=== PATIENT | female | born 1945 | race Caucasian/White ===

== ENCOUNTER 2018-01-17 12:53 | Emergency (ER) | payer OTHER ==
[~2018-01-17] VITALS: Ht 149.9 cm; Wt 96.2 kg
[2018-01-17 13:02] VITALS: BP 130/58
[2018-01-17] MEDS ORDERED: NACL 0.9% 500 ML IV ONE (13:17)
[2018-01-17] MEDS ORDERED: KETOROLAC 30 MG/ML VIAL IVP ONE (13:20)
--- NOTE | 2018-01-17 13:22 | NUR ---
PT TAKEN TO BED 4 VIA MOTORIZED WHEELCHAIR
--- NOTE | 2018-01-17 13:30 | NUR ---
PATIENT PRESENTS TO ED WITH PT BIB SON FOR C/O LEFT FLANK PAIN 8/10 FOR 2 WEEKS. DENIES N/V/D OR DIZZINESS. PAIN SOMETIMES ASSOCIATED WITH SOB. HX: ASTHMA, DM, ARTHRITIS, HTN, OSTEOARTHRITIS; SKIN IS PINK/WARM/DRY; AAOX4 WITH EVEN AND STEADY GAIT; LUNGS CLEAR BL; HR EVEN AND REGULAR; PT DENIES ANY FEVER, CP, SOB, OR COUGH AT THIS TIME; PATIENT STATES PAIN OF 8/10 AT THIS TIME; VSS; PATIENT POSITIONED FOR COMFORT; HOB ELEVATED; BEDRAILS UP X2; BED DOWN. ER MD MADE AWARE OF PT STATUS.
--- NOTE | 2018-01-17 13:50 | NUR ---
PT TAKEN OFF THE UNIT VIA GURNEY BY MALE IMPERSONATOR CARLOS
[2018-01-17 15:18] VITALS: BP 130/58
--- NOTE | 2018-01-17 15:19 | NUR ---
Patient discharged with v/s stable. Written and verbal after care instructions given and explained. Patient alert, oriented and verbalized understanding of instructions. Ambulatory with to car. All questions addressed prior to discharge. ID band removed. Patient advised to follow up with PMD. Rx of MOTRIN, TRAMADOL given. Patient educated on indication of medication including possible reaction and side effects. Opportunity to ask questions provided and answered.
--- NOTE | 2018-01-17 15:55 | NUR ---
IV DC'D SITE CLEAR NO BLEEDING.
== END 2018-01-17 15:19 | disposition home or self-care (01) ==
LOC: MED 12:53
DX: M54.9 Dorsalgia, unspecified (principal); R03.0 Elevated blood-pressure reading, without diagnosis of hypertension; Z91.013 Allergy to seafood
CPT/HCPCS: 74176; 81002; 81025; 96374; 99284; J1885; J7030

== ENCOUNTER 2018-01-23 12:04 | Emergency (ER) | payer OTHER ==
[~2018-01-23] VITALS: Ht 142.2 cm; Wt 99.8 kg
[2018-01-23 12:24] VITALS: BP 131/86
--- NOTE | 2018-01-23 12:30 | NUR ---
PATIENT AMBULATED WITH ASSISTANCE TO BED 6.
--- NOTE | 2018-01-23 12:35 | NUR ---
PATIENT PRESENTS TO ED WITH COMPLAINTS OF DIZZINESS AND POSSIBLE VERTIGO. PATIENT STATES SHE ATTEMPTED TO GET UP THIS MORNING FROM SLEEPING AND WAS VERY DIZZY AND NAUSEATED. SKIN IS PINK/WARM/DRY; AAOX4 WITH EVEN AND STEADY GAIT; LUNGS CLEAR BL; HR EVEN AND REGULAR; PT DENIES ANY FEVER, CP, SOB, OR COUGH AT THIS TIME; PATIENT STATES PAIN OF 0/10 AT THIS TIME; VSS; PATIENT POSITIONED FOR COMFORT; HOB ELEVATED; BEDRAILS UP X1; BED DOWN. ER MD MADE AWARE OF PT STATUS.
[2018-01-23] MEDS ORDERED: MECLIZINE 25 MG TAB PO ONE (13:20)
--- NOTE | 2018-01-23 13:50 | NUR ---
PATIENT TAKEN TO CT VIA GURNEY AT THIS TIME.
--- NOTE | 2018-01-23 13:58 | NUR ---
PATIENT BACK FROM CT
--- NOTE | 2018-01-23 14:30 | NUR ---
Patient appears to be resting comfortably in bed. Vital Signs within normal limits. Respirations even and unlabored.
[2018-01-23 14:50] VITALS: BP 126/81
== END 2018-01-23 14:50 | disposition home or self-care (01) ==
LOC: MED 12:04
DX: R42 Dizziness and giddiness (principal); R11.0 Nausea; R51 Headache; J45.909 Unspecified asthma, uncomplicated; E11.9 Type 2 diabetes mellitus without complications; I10 Essential (primary) hypertension; Z91.013 Allergy to seafood
CPT/HCPCS: 70450; 99284; J8597

== ENCOUNTER 2018-04-26 03:12 | Emergency (ER) | payer OTHER ==
[~2018-04-26] VITALS: Ht 132.1 cm; Wt 93.4 kg
--- NOTE | 2018-04-26 03:20 | NUR ---
PT AMBULATED W/ ASSIST BY SON TO ER BED 5
[2018-04-26 03:27] VITALS: BP 146/76
--- NOTE | 2018-04-26 03:43 | NUR ---
72/F BIB FAMILY, C/O 8/10 CONSTANT JOINT PAIN, MOSTLY ON HANDS, X4 DAYS. PT REPORTS TAKING TYLENOL WITH CODEINE WITH LITTLE RELIEF. PT REPORTS BEING UNABLE TO SLEEP DUE TO PAIN. AOX4, AMBULATORY, RR EVEN AND UNLABORED. ER MD AT BEDSIDE TO EVALUTE PT HX ASTHMA, DM, HTN, OSTEOPOROSIS, ARTHRITIS.
[2018-04-26] MEDS ORDERED: MORPHINE SULFATE 2 MG/ML SYR IM ONE (04:00)
[2018-04-26 04:11] VITALS: BP 142/85
--- NOTE | 2018-04-26 04:12 | NUR ---
Patient discharged with v/s stable. Written and verbal after care instructions given and explained. Patient alert, oriented and verbalized understanding of instructions. Ambulatory with steady gait. All questions addressed prior to discharge. ID band removed. Patient advised to follow up with PMD. Rx of CELEBREX given. Patient educated on indication of medication including possible reaction and side effects. Opportunity to ask questions provided and answered.
== END 2018-04-26 04:11 | disposition home or self-care (01) ==
LOC: MED 03:12
DX: M19.032 Primary osteoarthritis, left wrist (principal); M19.031 Primary osteoarthritis, right wrist; J45.909 Unspecified asthma, uncomplicated; E11.9 Type 2 diabetes mellitus without complications; I10 Essential (primary) hypertension; M81.0 Age-related osteoporosis without current pathological fracture; Z91.013 Allergy to seafood
CPT/HCPCS: 96372; 99283; J2270

== ENCOUNTER 2018-06-17 17:20 | Emergency (ER) | payer OTHER ==
[~2018-06-17] VITALS: Ht 157.5 cm; Wt 93.4 kg
[2018-06-17 17:40] VITALS: BP 143/77
[2018-06-17] MEDS ORDERED: HYDROcodone/APAP 5/325 MG 1 TAB TAB PO ONE (17:55)
[2018-06-17] MEDS ORDERED: BACITRACIN OINT 500 UNITS/GM PKT TP ONE (20:13)
[2018-06-17 20:20] VITALS: BP 140/78
== END 2018-06-17 20:20 | disposition home or self-care (01) ==
LOC: MED 17:20
DX: S80.11XA Contusion of right lower leg, initial encounter (principal); J45.909 Unspecified asthma, uncomplicated; E11.9 Type 2 diabetes mellitus without complications; Z91.013 Allergy to seafood; W20.8XXA Other cause of strike by thrown, projected or falling object, initial encounter; Y93.89 Activity, other specified; Y92.89 Other specified places as the place of occurrence of the external cause; Y99.8 Other external cause status
CPT/HCPCS: 73590; 73610; 81002; 90471; 90715; 99283; Q0092

== ENCOUNTER 2018-07-30 11:55 | Emergency (ER) | payer OTHER, MEDICAID ==
[~2018-07-30] VITALS: Ht 157.5 cm; Wt 99.8 kg
--- NOTE | 2018-07-30 12:05 | NUR ---
PT AMBULATED TO ER BED 10
[2018-07-30 12:20] VITALS: BP 120/66
--- NOTE | 2018-07-30 13:03 | NUR ---
BIB SON WITH C/O PRODUCTIVE COUGH AND SORE THROAT, HEAD ACHE, CHEST PAIN WHEN COUGHING X 1 WK AND CHRONIC LT ANKLE SWELLING/PAIN; DENIES INJURY. PT HAS AUDIBLE HOARSE VOICE. SOME WHEEZING NOTED ON AUSCULTATION OF LUNGS, UPPER LOBES. VSS; PATIENT POSITIONED FOR COMFORT; HOB ELEVATED; BEDRAILS UP X2; BED DOWN. ER MD MADE AWARE OF PT STATUS.
[2018-07-30 14:28] VITALS: BP 120/66
--- NOTE | 2018-07-30 14:28 | NUR ---
Patient discharged with v/s stable. Written and verbal after care instructions given and explained. Patient alert, oriented and verbalized understanding of instructions. Ambulatory with steady gait. All questions addressed prior to discharge. ID band removed. Patient advised to follow up with PMD. Rx of norco and teshoracio cota, and guaiatussin given. Patient educated on indication of medication including possible reaction and side effects. Opportunity to ask questions provided and answered.
== END 2018-07-30 14:28 | disposition home or self-care (01) ==
LOC: MED 11:55
DX: B34.9 Viral infection, unspecified (principal); J45.909 Unspecified asthma, uncomplicated; E11.9 Type 2 diabetes mellitus without complications; I10 Essential (primary) hypertension; M81.0 Age-related osteoporosis without current pathological fracture; Z91.013 Allergy to seafood; Z98.890 Other specified postprocedural states
CPT/HCPCS: 71045; 99283; Q0092

== ENCOUNTER 2018-08-15 21:03 | Inpatient (IN) | payer OTHER, MEDICAID ==
[~2018-08-15] VITALS: Ht 162.6 cm; Wt 99.8 kg
[2018-08-15] MEDS: NACL 0.9% 1,000 ML IV SCH (00:40)
[2018-08-15] MEDS ORDERED: ALBUTEROL SULFATE/IPRATROPIU 3 ML SOL IH ONE ×2 (21:30→21:50)
[2018-08-15] MEDS ORDERED: methylPREDNISolone SS 125 MG in WATER STERILE 2 ML IV ONE (21:30)
[2018-08-15] MEDS ORDERED: HYDR-5122 PO (23:24)
[2018-08-15] MEDS ORDERED: INSU100S45 SUBQ (23:24)
[2018-08-15] MEDS ORDERED: ALBU1SPR IH (23:24)
[2018-08-15] MEDS ORDERED: LEVEMIR SUBQ (23:24)
[2018-08-15] MEDS ORDERED: ALBU0.0912 IH (23:24)
[2018-08-15] MEDS ORDERED: ZOLPIDEM 5 MG TAB PO PRN (23:25)
[2018-08-15] MEDS ORDERED: ACETAMINOPHEN 325 MG TAB PO PRN (23:25)
[2018-08-15] MEDS ORDERED: LORazepam 2 MG/ML VIAL IM/IVP PRN (23:25)
[2018-08-15] MEDS ORDERED: ONDANSETRON 4 MG/2 ML VIAL IM/IVP PRN (23:25)
[2018-08-15] MEDS ORDERED: MORPHINE SULFATE 4 MG/ML SYR IVP PRN (23:25)
[2018-08-15] MEDS ORDERED: DOCUSATE SODIUM 100 MG GELCAP PO PRN (23:25)
[2018-08-15 23:52] LABS: BASOPHILS % (AUTO) 0.3 % (0.0-2.0); EOSINOPHILS % (AUTO) 0.5 % (0.0-4.0); HEMATOCRIT 41.6 % (36-48); HEMOGLOBIN 13.9 g/dL (12.0-16.0); LYMPHOCYTES # (AUTO) 1.3 K/uL (2.5-16.5); LYMPHOCYTES % (AUTO) 15.4 % (20.5-51.1); MEAN CORPUSCULAR HEMOGLOBIN 34 pg (27-31); MEAN CORPUSCULAR HGB CONC 33 g/dL (33-37); MEAN CORPUSCULAR VOLUME 101.2 fL (80-94); MONOCYTES # (AUTO) 0.3 K/uL (0.8-1.0); MONOCYTES % (AUTO) 3.2 % (1.7-9.3); NEUTROPHILS # (AUTO) 6.7 K/uL (1.8-7.7); NEUTROPHILS % (AUTO) 80.6 % (42.2-75.2); PLATELET COUNT (AUTO) 240 K/uL (140-450); RED BLOOD CELL COUNT(AUTO) 4.11 MIL/uL (4.20-5.40); RED CELL DISTRIBUTION WIDTH 13.3 % (11.6-13.7); WHITE BLOOD COUNT (AUTO) 8.3 K/uL (4.8-10.8)
[2018-08-16] VITALS: BP 144/66
[2018-08-16] MEDS ORDERED: ALBUTEROL SULFATE/IPRATROPIU 3 ML SOL IH PRN (00:10)
[2018-08-16 00:11] LABS: ALBUMIN 3.5 g/dL (3.4-5.0); ANION GAP 10.3 (8-16); CARBON DIOXIDE 30.4 mmol/L (21-32); CREATININE 0.8 mg/dL (0.6-1.3); POTASSIUM 3.7 mmol/L (3.5-5.1); TOTAL BILIRUBIN 0.2 mg/dL (0.0-1.0)
[2018-08-16 00:15] LABS: CHOL/HDL RATIO 3.2 (1-4.5); FREE T4 (FREE THYROXINE) 1.04 ng/dL (0.76-1.46); MAGNESIUM 1.8 mg/dL (1.8-2.4); PHOSPHORUS 2.6 mg/dL (2.5-4.9); THYROID STIMULATING HORMONE 1.29 uIU/mL (0.34-3.74)
[2018-08-16 00:17] LABS: PROTHROMBIN TIME 9.5 secs (10.8-13.4)
[2018-08-16] MEDS ORDERED: DEXTROSE 50% 50 ML SYR IVP PRN (02:35)
[2018-08-16] MEDS ORDERED: INSULIN LANTUS 100 UNITS/ML 10 ML VIAL SUBQ SCH ×3 (03:15→21:00)
[2018-08-16 04:58] LABS: APPEARANCE,URINE CLEAR (CLEAR); BILIRUBIN,URINE NEGATIVE (NEGATIVE); BLOOD, URINE NEGATIVE (NEGATIVE); COLOR,URINE YELLOW (YELLOW); LEUKOCYTE ESTERASE ,URINE NEGATIVE (NEGATIVE); NITRITE, URINE NEGATIVE (NEGATIVE); PH,URINE 6.5 (5.0-9.0); UGLUCOSE 3+ (NEGATIVE)
[2018-08-16 04:59] LABS: RBC,URINE 0-5 (RARE) /HPF (0-5); WBC,URINE 0-5 (RARE) /HPF (0-5)
[2018-08-16 05:02] LABS: BARBITURATE, URINE NEG. ng/ml (NEG <=200); BENZODIAZEPINE, URINE NEG. ng/mL (NEG <=200); CANNABINOID, URINE NEG. ng/mL (NEG <=50); COCAINE, URINE NEG. ng/mL (NEG <=300); OPIATE, URINE NEG. ng/mL (NEG <=2000); PHENCYCLIDINE SCREEN,URINE NEG. ng/mL (NEG <=25)
[2018-08-16] MEDS: HYDROcodone/APAP 5/325 MG 1 TAB TAB PO PRN ×2 (05:35→22:14)
[2018-08-16] MEDS: INSULIN LISPRO SLIDING SCALE 100 UNITS/ML VIAL SUBQ PRN ×4 (05:36→22:04)
[2018-08-16] MEDS: BLOOD GLUCOSE MONITORING 1 DEV DEV FS SCH ×4 (05:46→21:57)
[2018-08-16] MEDS: ALBUTEROL SULFATE/IPRATROPIU 3 ML SOL IH SCH ×3 (06:45→18:39)
[2018-08-16 06:56] LABS: BASOPHILS % (AUTO) 0.2 % (0.0-2.0); EOSINOPHILS % (AUTO) 0.2 % (0.0-4.0); HEMATOCRIT 42.5 % (36-48); HEMOGLOBIN 14.2 g/dL (12.0-16.0); LYMPHOCYTES # (AUTO) 0.7 K/uL (2.5-16.5); MEAN CORPUSCULAR HEMOGLOBIN 34 pg (27-31); MEAN CORPUSCULAR HGB CONC 33 g/dL (33-37); MEAN CORPUSCULAR VOLUME 101.2 fL (80-94); MONOCYTES # (AUTO) 0.1 K/uL (0.8-1.0); NEUTROPHILS % (AUTO) 86.6 % (42.2-75.2); PLATELET COUNT (AUTO) 245 K/uL (140-450); RED CELL DISTRIBUTION WIDTH 13.2 % (11.6-13.7); WHITE BLOOD COUNT (AUTO) 5.7 K/uL (4.8-10.8)
[2018-08-16] MEDS ORDERED: MORPHINE SULFATE 2 MG/ML SYR IVP PRN (07:10)
[2018-08-16 07:42] LABS: ANION GAP 16.3 (8-16); CARBON DIOXIDE 24.4 mmol/L (21-32); CREATININE 0.6 mg/dL (0.6-1.3); POTASSIUM 3.7 mmol/L (3.5-5.1)
[2018-08-16 07:51] LABS: MAGNESIUM 1.8 mg/dL (1.8-2.4); PHOSPHORUS 2.8 mg/dL (2.5-4.9)
[2018-08-16 08:00] VITALS: BP 119/66
[2018-08-16] MEDS ORDERED: methylPREDNISolone SS 125 MG/2 ML VIAL IVP SCH (09:00)
[2018-08-16] MEDS: NACL 0.9% 1,000 ML IV SCH ×2 (09:21→20:17)
[2018-08-16] MEDS: FLUoxetine 20 MG CAP PO SCH (09:34)
[2018-08-16] MEDS: methylPREDNISolone SS 125 MG/2 ML VIAL IVP SCH ×3 (09:35→17:25)
[2018-08-16] MEDS: LACTOBACILLUS RHAMNOSUS GG 1 EACH CAP PO SCH (09:35)
[2018-08-16] MEDS: metFORMIN 500 MG TAB PO SCH ×2 (09:36→17:25)
[2018-08-16 15:59] VITALS: BP 102/56
[2018-08-16] MEDS ORDERED: INSU100S54 SC (15:59)
[2018-08-16] MEDS ORDERED: METF500T PO (16:00)
[2018-08-16] MEDS ORDERED: LACT10CA PO (16:00)
[2018-08-16] MEDS ORDERED: GLUC-805 FS (16:00)
[2018-08-16] MEDS ORDERED: PRED10TA6 PO (16:00)
[2018-08-16] MEDS ORDERED: FLUT1DSK IH (16:00)
[2018-08-16 20:00] VITALS: BP 105/49
[2018-08-17 04:00] VITALS: BP 112/54
[2018-08-17] MEDS ORDERED: INSULIN LANTUS 100 UNITS/ML 10 ML VIAL SUBQ SCH (06:25)
[2018-08-17] MEDS: BLOOD GLUCOSE MONITORING 1 DEV DEV FS SCH (06:29)
[2018-08-17] MEDS: INSULIN LISPRO SLIDING SCALE 100 UNITS/ML VIAL SUBQ PRN (06:32)
[2018-08-17 06:34] LABS: HEMATOCRIT 39.6 % (36-48); HEMOGLOBIN 13.2 g/dL (12.0-16.0); LYMPHOCYTES # (AUTO) 1.1 K/uL (2.5-16.5); LYMPHOCYTES % (AUTO) 9.6 % (20.5-51.1); MEAN CORPUSCULAR HEMOGLOBIN 34 pg (27-31); MEAN CORPUSCULAR HGB CONC 33 g/dL (33-37); MEAN CORPUSCULAR VOLUME 101.3 fL (80-94); MONOCYTES # (AUTO) 0.3 K/uL (0.8-1.0); MONOCYTES % (AUTO) 3.1 % (1.7-9.3); NEUTROPHILS # (AUTO) 9.8 K/uL (1.8-7.7); NEUTROPHILS % (AUTO) 87.3 % (42.2-75.2); PLATELET COUNT (AUTO) 247 K/uL (140-450); RED BLOOD CELL COUNT(AUTO) 3.91 MIL/uL (4.20-5.40); RED CELL DISTRIBUTION WIDTH 13.5 % (11.6-13.7); WHITE BLOOD COUNT (AUTO) 11.3 K/uL (4.8-10.8)
[2018-08-17 06:55] LABS: CREATININE 0.5 mg/dL (0.6-1.3)
[2018-08-17] MEDS: ALBUTEROL SULFATE/IPRATROPIU 3 ML SOL IH SCH ×2 (07:00→13:00)
[2018-08-17 07:02] LABS: ANION GAP 10.8 (8-16); CARBON DIOXIDE 27.8 mmol/L (21-32); POTASSIUM 3.6 mmol/L (3.5-5.1)
[2018-08-17 07:16] LABS: MAGNESIUM 1.7 mg/dL (1.8-2.4); PHOSPHORUS 3.1 mg/dL (2.5-4.9)
[2018-08-17] MEDS ORDERED: SULF-58 PO (07:54)
[2018-08-17 08:00] VITALS: BP 104/51
[2018-08-17] MEDS: FLUoxetine 20 MG CAP PO SCH (09:00)
[2018-08-17] MEDS: LACTOBACILLUS RHAMNOSUS GG 1 EACH CAP PO SCH (09:00)
[2018-08-17] MEDS ORDERED: methylPREDNISolone SS 40 MG/ML VIAL IVP SCH ×2 (09:00)
[2018-08-17] MEDS: metFORMIN 500 MG TAB PO SCH (09:00)
[2018-08-17] MEDS ORDERED: CALCIUM CARB/VIT-D 500 MG/200 IU 1 TAB PO SCH (09:45)
[2018-08-17] MEDS ORDERED: MAGNESIUM OXIDE 400 MG TAB PO SCH (10:00)
[2018-08-17] MEDS ORDERED: CALC-1018 PO (10:21)
[2018-08-17] MEDS ORDERED: MAGN241.1 PO (10:22)
[2018-08-17] MEDS: NACL 0.9% 1,000 ML IV SCH (10:35)
[2018-08-18] MEDS ORDERED: CALCIUM CARB/VIT-D 500 MG/200 IU 1 TAB PO SCH (09:00)
[2018-08-18] MEDS ORDERED: methylPREDNISolone SS 40 MG/ML VIAL IVP SCH ×2 (09:00)
== END 2018-08-17 13:00 | disposition home health service (06) | DRG 202 ==
LOC: MED 21:03 → MTU 23:21
PROVIDERS: ADMIT General Practice; ATTEND General Practice
DX: J45.901 Unspecified asthma with (acute) exacerbation (principal); N39.0 Urinary tract infection, site not specified; E11.65 Type 2 diabetes mellitus with hyperglycemia; M19.90 Unspecified osteoarthritis, unspecified site; F32.9 Major depressive disorder, single episode, unspecified; I10 Essential (primary) hypertension; D72.828 Other elevated white blood cell count; T38.0X5A Adverse effect of glucocorticoids and synthetic analogues, initial encounter; E66.9 Obesity, unspecified; Z68.37 Body mass index [BMI] 37.0-37.9, adult; Z91.013 Allergy to seafood; Z79.4 Long term (current) use of insulin; Z79.51 Long term (current) use of inhaled steroids; Z79.899 Other long term (current) drug therapy; Z80.0 Family history of malignant neoplasm of digestive organs; Y92.89 Other specified places as the place of occurrence of the external cause
CPT/HCPCS: 36415; 36600; 71045; 80048; 80053; 80305; 81001; 82150; 82803; 82948; 83036; 83690; 83735; 83880; 84100; 84439; 84443; 84484; 85025; 85610; 85730; 87081; 87086; 87804; 93005; 94640; 96374; 97110; 97116; 97530; 99285; J0696; J1644; J1815; J2920; J2930; J7030; J7060; J7620; Q0092

== ENCOUNTER 2019-10-08 20:03 | Emergency (ER) | payer OTHER, MEDICAID ==
[~2019-10-08] VITALS: Ht 152.4 cm; Wt 103.0 kg
[~2019-10-08 20:03] MED LIST: ALBU0.0912 IH; ALBU1SPR IH; CALC-1018 PO; FLUT1DSK IH; GLUC-805 FS; HYDR-5122 PO; INSU100S54 SC; LACT10CA PO; LEVEMIR SUBQ; MAGN241.1 PO; METF500T PO; PRED10TA6 PO; SULF-58 PO
[2019-10-08 20:33] VITALS: BP 121/81
[2019-10-08 21:35] LABS: BASOPHILS # (AUTO) 0.1 K/uL (0.00-0.22); BASOPHILS % (AUTO) 1.9 % (0.0-2.0); EOSINOPHILS # (AUTO) 0.1 K/uL (0-0.4); EOSINOPHILS % (AUTO) 1.5 % (0.0-4.0); HEMATOCRIT 43.7 % (36-48); HEMOGLOBIN 14.8 g/dL (12.0-16.0); LYMPHOCYTES # (AUTO) 1.7 K/uL (2.5-16.5); LYMPHOCYTES % (AUTO) 27.6 % (20.5-51.1); MEAN CORPUSCULAR HEMOGLOBIN 35 pg (27-31); MEAN CORPUSCULAR HGB CONC 34 g/dL (33-37); MEAN CORPUSCULAR VOLUME 102.8 fL (80-94); MONOCYTES # (AUTO) 0.6 K/uL (0.8-1.0); MONOCYTES % (AUTO) 9.9 % (1.7-9.3); NEUTROPHILS # (AUTO) 3.7 K/uL (1.8-7.7); NEUTROPHILS % (AUTO) 59.1 % (42.2-75.2); PLATELET COUNT (AUTO) 237 K/uL (140-450); RED BLOOD CELL COUNT(AUTO) 4.25 MIL/uL (4.20-5.40); RED CELL DISTRIBUTION WIDTH 12.8 % (11.6-13.7); WHITE BLOOD COUNT (AUTO) 6.2 K/uL (4.8-10.8)
[2019-10-08 21:52] LABS: ALBUMIN 3.8 g/dL (3.4-5.0); ANION GAP 10.6 (8-16); ASPARTATE AMINOTRANSFERASE 16 U/L (15-37); CARBON DIOXIDE 34.5 mmol/L (21-32); CHLORIDE 102 mmol/L (98-107); CREATININE 0.7 mg/dL (0.6-1.3); GLUCOSE 197 mg/dL (74-106); LIPASE 118 U/L (73-393); POTASSIUM 4.1 mmol/L (3.5-5.1); SODIUM SERUM 143 mmol/L (136-145); TOTAL BILIRUBIN 0.3 mg/dL (0.0-1.0); UREA NITROGEN, BLOOD 11 mg/dL (7-18)
[2019-10-08 22:40] VITALS: BP 128/78
== END 2019-10-08 22:40 | disposition home or self-care (01) ==
LOC: MED 20:03
DX: R07.9 Chest pain, unspecified (principal); J45.909 Unspecified asthma, uncomplicated; E11.9 Type 2 diabetes mellitus without complications; I10 Essential (primary) hypertension; Z79.4 Long term (current) use of insulin; Z79.899 Other long term (current) drug therapy; Z91.013 Allergy to seafood
CPT/HCPCS: 36415; 71045; 80053; 82550; 82553; 83690; 84484; 85025; 93005; 99285; Q0092

== ENCOUNTER 2019-10-31 07:05 | Emergency (ER) | payer OTHER, MEDICAID ==
[~2019-10-31] VITALS: Ht 157.5 cm; Wt 114.3 kg
[2019-10-31 07:25] VITALS: BP 146/86
[2019-10-31] MEDS ORDERED: ALBUTEROL SULFATE/IPRATROPIU 3 ML SOL IH ONE ×2 (07:55→08:25)
[2019-10-31] MEDS ORDERED: methylPREDNISolone SS 125 MG/2 ML VIAL IM ONE (07:55)
[2019-10-31 08:58] VITALS: BP 146/86
== END 2019-10-31 08:58 | disposition home or self-care (01) ==
LOC: MED 07:05
DX: J45.901 Unspecified asthma with (acute) exacerbation (principal); E11.9 Type 2 diabetes mellitus without complications; I10 Essential (primary) hypertension; Z79.4 Long term (current) use of insulin; Z79.899 Other long term (current) drug therapy; Z91.013 Allergy to seafood
CPT/HCPCS: 94640; 96372; 99284; J2930

== ENCOUNTER 2021-01-25 19:24 | Emergency (ER) | payer OTHER ==
[~2021-01-25] VITALS: Ht 162.6 cm; Wt 106.6 kg
[2021-01-25 19:29] VITALS: BP 134/73
--- NOTE | 2021-01-25 19:38 | NUR ---
PT TAKEN TO BED 1
--- NOTE | 2021-01-25 19:39 | NUR ---
EPIGASTRIC PAIN X 2 DAYS; DENIES N/V. DIFFICULTY EATING FEELS LIKE THE FOOD IS COMING UP THE THROAT THAT FEELS LIKE BURNING OF 8/10 INTERMITTENT. PATIENT TOOK PEPTOBISMAL, AND TUMS THIS MORNING AND THIS AFTERNOON WITH NO RELIEF. AAOX4. VSS. PMH: DM, OSTEOPOROSIS, ASTHMA MEDS: INSULIN AND MONTELUKAST ALLERGIES: SHRIMP
--- NOTE | 2021-01-25 19:49 | NUR ---
PATIENT MOTORED TO THE BATHROOM
[2021-01-25] MEDS ORDERED: PANTOPRAZOLE 40 MG INJ VIAL IVP ONE (20:35)
[2021-01-25] MEDS ORDERED: MORPHINE SULFATE 4 MG/ML SYR IVP ONE (20:35)
[2021-01-25] MEDS ORDERED: ONDANSETRON 4 MG/2 ML VIAL IVP ONE (20:35)
[2021-01-25] MEDS ORDERED: NACL 0.9% 1,000 ML IV SCH (20:35)
--- NOTE | 2021-01-25 20:38 | NUR ---
EKG PERFORMED AT BEDSIDE. EKG READS SINUS RHYTHM @ 83
--- NOTE | 2021-01-25 20:51 | NUR ---
ULTRASOUND AT BEDSIDE
[2021-01-25 20:53] LABS: BASOPHILS % (AUTO) 0.7 % (0.0-2.0); EOSINOPHILS # (AUTO) 0.1 K/uL (0-0.4); EOSINOPHILS % (AUTO) 1.5 % (0.0-4.0); HEMATOCRIT 42.8 % (36-48); HEMOGLOBIN 14.4 g/dL (12.0-16.0); LYMPHOCYTES # (AUTO) 1.3 K/uL (2.5-16.5); LYMPHOCYTES % (AUTO) 23.5 % (20.5-51.1); MEAN CORPUSCULAR HEMOGLOBIN 35 pg (27-31); MEAN CORPUSCULAR HGB CONC 34 g/dL (33-37); MEAN CORPUSCULAR VOLUME 103.6 fL (80-94); MONOCYTES # (AUTO) 0.5 K/uL (0.8-1.0); MONOCYTES % (AUTO) 8.8 % (1.7-9.3); NEUTROPHILS # (AUTO) 3.7 K/uL (1.8-7.7); NEUTROPHILS % (AUTO) 65.5 % (42.2-75.2); PLATELET COUNT (AUTO) 250 K/uL (140-450); RED BLOOD CELL COUNT(AUTO) 4.13 MIL/uL (4.20-5.40); RED CELL DISTRIBUTION WIDTH 13.1 % (11.6-13.7); WHITE BLOOD COUNT (AUTO) 5.7 K/uL (4.8-10.8)
[2021-01-25 21:10] LABS: ALBUMIN 4.1 g/dL (3.4-5.0); ASPARTATE AMINOTRANSFERASE 18 U/L (15-37); CHLORIDE 104 mmol/L (98-107); CREATININE 0.6 mg/dL (0.6-1.3); GLUCOSE 215 mg/dL (74-106); LIPASE 82 U/L (73-393); SODIUM SERUM 142 mmol/L (136-145); TOTAL BILIRUBIN 0.6 mg/dL (0.0-1.0); UREA NITROGEN, BLOOD 9 mg/dL (7-18)
[2021-01-25 22:50] LABS: APPEARANCE,URINE CLEAR (CLEAR); BILIRUBIN,URINE NEGATIVE (NEGATIVE); BLOOD, URINE NEGATIVE (NEGATIVE); COLOR,URINE YELLOW (YELLOW); LEUKOCYTE ESTERASE ,URINE 2+ (NEGATIVE); NITRITE, URINE NEGATIVE (NEGATIVE); PH,URINE 7.5 (5.0-9.0); UGLUCOSE NEGATIVE (NEGATIVE)
--- NOTE | 2021-01-25 23:00 | NUR ---
Patient appears to be resting comfortably in bed. Vital Signs within normal limits. Respirations even and unlabored. safety measures in place. will continue to monitor patient.
--- NOTE | 2021-01-25 23:23 | NUR ---
Wasted morphine 2mg due to partial dose of a total of 4mg morphine. Wasted and witnessed with ANABELA Weiss.
[2021-01-25 23:29] LABS: RBC,URINE 0-5 /HPF (0-5)
[2021-01-25] MEDS ORDERED: MORPHINE SULFATE 2 MG/ML SYR IVP ONE (23:40)
[2021-01-26] MEDS ORDERED: cefTRIAXone 1,000 MG VIAL ONE (00:15)
[2021-01-26] MEDS ORDERED: ALUMINUM HYD/MAG/SIMETHICONE 30 ML, DICYCLOMINE HCL LIQUID 20 MG, LIDOCAINE VISCOUS 2% ... PO ONE ×3 (00:25)
[2021-01-26] MEDS ORDERED: PANT40EC PO (00:29)
[2021-01-26] MEDS ORDERED: CEPH-588 PO (00:33)
[2021-01-26] MEDS ORDERED: LIDOCAINE VISCOUS 2% 20 ML UDC ONE (00:39)
[2021-01-26] MEDS ORDERED: ALUMINUM HYD/MAG/SIMETHICONE 30 ML UDC ONE (00:40)
[2021-01-26] MEDS ORDERED: DICYCLOMINE HCL LIQUID 10 MG/5 ML UDC ONE (00:40)
--- NOTE | 2021-01-26 01:04 | NUR ---
IV removed, catheter intact and site benign. Applied folded 4x4 gauze and tape to stop bleeding.
[2021-01-26 01:21] VITALS: BP 132/72
--- NOTE | 2021-01-26 01:21 | NUR ---
Patient discharged with v/s stable. Written and verbal after care instructions given and explained. Patient alert, oriented and verbalized understanding of instructions. Ambulatory with steady gait. All questions addressed prior to discharge. ID band removed. Patient advised to follow up with PMD. Rx of KEFLEX, AND PROTONIX given. Patient educated on indication of medication including possible reaction and side effects. Opportunity to ask questions provided and answered.
== END 2021-01-26 01:21 | disposition home or self-care (01) ==
LOC: MED 19:24
DX: R10.13 Epigastric pain (principal); N39.0 Urinary tract infection, site not specified; E11.65 Type 2 diabetes mellitus with hyperglycemia; J45.909 Unspecified asthma, uncomplicated; K21.9 Gastro-esophageal reflux disease without esophagitis; I10 Essential (primary) hypertension; Z79.4 Long term (current) use of insulin; Z79.899 Other long term (current) drug therapy; Z91.013 Allergy to seafood
CPT/HCPCS: 36415; 74176; 76705; 80053; 81001; 83690; 84484; 85025; 87086; 93005; 96361; 96365; 96375; 96376; 99285; C9113; J0696; J2270; J2405; J7030

== ENCOUNTER 2021-01-27 17:17 | Emergency (ER) | payer OTHER ==
[~2021-01-27] VITALS: Ht 162.6 cm; Wt 106.6 kg
[~2021-01-27 17:17] MED LIST changes: +CEPH-588 PO; +PANT40EC PO
[2021-01-27 17:24] VITALS: BP 124/82
[2021-01-27] MEDS ORDERED: ONDANSETRON 4 MG ODT PO ONE (17:35)
[2021-01-27] MEDS ORDERED: PANTOPRAZOLE 40 MG TABEC PO ONE (17:35)
[2021-01-27] MEDS ORDERED: LIDOCAINE VISCOUS 2% 20 ML UDC PO ONE (17:35)
[2021-01-27] MEDS ORDERED: ALUMINUM HYD/MAG/SIMETHICONE 30 ML UDC PO ONE (17:35)
[2021-01-27 18:10] LABS: BASOPHILS % (AUTO) 0.3 % (0.0-2.0); EOSINOPHILS # (AUTO) 0.1 K/uL (0-0.4); EOSINOPHILS % (AUTO) 1.9 % (0.0-4.0); HEMATOCRIT 41.7 % (36-48); LYMPHOCYTES # (AUTO) 1.6 K/uL (2.5-16.5); LYMPHOCYTES % (AUTO) 26.3 % (20.5-51.1); MEAN CORPUSCULAR HEMOGLOBIN 35 pg (27-31); MEAN CORPUSCULAR HGB CONC 34 g/dL (33-37); MEAN CORPUSCULAR VOLUME 104.2 fL (80-94); MONOCYTES # (AUTO) 0.7 K/uL (0.8-1.0); MONOCYTES % (AUTO) 11.1 % (1.7-9.3); NEUTROPHILS # (AUTO) 3.6 K/uL (1.8-7.7); NEUTROPHILS % (AUTO) 60.4 % (42.2-75.2); PLATELET COUNT (AUTO) 247 K/uL (140-450); RED CELL DISTRIBUTION WIDTH 12.7 % (11.6-13.7)
[2021-01-27 18:31] LABS: ALBUMIN 3.8 g/dL (3.4-5.0); ANION GAP 10.7 (8-16); ASPARTATE AMINOTRANSFERASE 17 U/L (15-37); CARBON DIOXIDE 31.1 mmol/L (21-32); CHLORIDE 106 mmol/L (98-107); CREATININE 0.6 mg/dL (0.6-1.3); GLUCOSE 137 mg/dL (74-106); LIPASE 86 U/L (73-393); POTASSIUM 3.8 mmol/L (3.5-5.1); SODIUM SERUM 144 mmol/L (136-145); TOTAL BILIRUBIN 0.5 mg/dL (0.0-1.0); UREA NITROGEN, BLOOD 8 mg/dL (7-18)
[2021-01-27 19:08] VITALS: BP 136/73
== END 2021-01-27 19:07 | disposition home or self-care (01) ==
LOC: MED 17:17
DX: K21.9 Gastro-esophageal reflux disease without esophagitis (principal); E11.9 Type 2 diabetes mellitus without complications; I10 Essential (primary) hypertension
CPT/HCPCS: 36415; 71045; 80053; 81002; 83690; 84484; 85025; 93005; 99285; Q0162; 76705; 81001; 87086; 96361; 96365; 96375; 96376; C9113; J0696; J2270; J2405; J7030

== ENCOUNTER 2022-01-21 08:50 | Emergency (ER) | payer OTHER ==
[~2022-01-21] VITALS: Ht 152.4 cm; Wt 104.3 kg
[~2022-01-21 08:50] MED LIST changes: +METF-346 PO; -METF500T PO
[2022-01-21 09:07] VITALS: BP 121/94
[2022-01-21] MEDS ORDERED: ONDANSETRON 4 MG ODT PO ONE (09:35)
[2022-01-21] MEDS ORDERED: DICYCLOMINE HCL LIQUID 20 MG, ALUMINUM HYD/MAG/SIMETHICONE 30 ML, LIDOCAINE VISCOUS 2% ... PO ONE ×3 (09:35)
[2022-01-21] MEDS ORDERED: DICYCLOMINE HCL LIQUID 10 MG/5 ML UDC ONE (09:44)
[2022-01-21] MEDS ORDERED: ALUMINUM HYD/MAG/SIMETHICONE 30 ML UDC ONE (09:44)
--- NOTE | 2022-01-21 09:50 | NUR ---
76YO FEMALE PT C/O BURNING 01/30 EPIGASTRIC PAIN ALONG WITH N/V XYESTERDAY. PT REPORTS VOMITING X2 YESTERDAY AND X1 TODAY , DENIES BLOOD IN VOMIT. PT STATES TAKING PEPTO X5AM THIS MORNING , HAD MILD RELIEF. PT STATES HAVING DX UTI AND STARTING ANTIBIOTICS YESTERDAY WHICH STARTED INITIAL ABDOMINAL DISCOMFORT AND N/V. PT STATES MILD NAUSEA AND SOB , CURRENT O2 AT 96% ROOM AIR .REPORTS BEING ON 2L AT HOME. DENIES DYSURIA , DIARRHEA OR CHEST PAIN AT THIS TIME. ABDOMEN NON TENDER OR DISTENDED, ACTIVE X4. PT AAOX4, USING MOBILITY SCOOTER FOR AMBULATION, RESPIRATIONS EVEN AND UNLABORED. PT PUT ON MONITOR. AT BEDSIDE HX: DIABETES, ARTHRITIS, ASTHMA, COPD ALLERIES: SHRIMP
--- NOTE | 2022-01-21 11:59 | NUR ---
The patient's care was reviewed and supervised by [facility], RN.
[2022-01-21] MEDS ORDERED: ONDA-188 SL (12:06)
[2022-01-21] MEDS ORDERED: CEPH-588 PO (12:06)
[2022-01-21 12:14] VITALS: BP 119/64
--- NOTE | 2022-01-21 12:17 | NUR ---
Patient discharged with v/s stable. Written and verbal after care instructions given and explained. Patient verbalized understanding. Wheel Chair Assisted with to home. All questions addressed prior to discharge. Advised to follow up with PMD.
== END 2022-01-21 12:14 | disposition home or self-care (01) ==
LOC: MED 08:50
DX: R11.2 Nausea with vomiting, unspecified (principal); T36.8X5A Adverse effect of other systemic antibiotics, initial encounter; J45.909 Unspecified asthma, uncomplicated; J44.9 Chronic obstructive pulmonary disease, unspecified; I10 Essential (primary) hypertension; K21.9 Gastro-esophageal reflux disease without esophagitis; E11.9 Type 2 diabetes mellitus without complications; Z79.4 Long term (current) use of insulin; Z79.899 Other long term (current) drug therapy; Z91.013 Allergy to seafood; Y92.89 Other specified places as the place of occurrence of the external cause
CPT/HCPCS: 81002; 99283; Q0162

== ENCOUNTER 2022-04-30 10:30 | Inpatient (IN) | payer OTHER ==
[~2022-04-30] VITALS: Ht 152.4 cm; Wt 83.9 kg
[~2022-04-30 10:30] MED LIST changes: +ONDA-188 SL
[2022-04-30 10:45] VITALS: BP 116/63
--- NOTE | 2022-04-30 10:56 | NUR ---
PT C/O SOB X1 WEEK PROGRESSIVELY GETTING WORSE. STATES USING INHALER WITHOUT RELIEF. 95% ON RA.
[2022-04-30] MEDS ORDERED: IPRATROPIUM 0.02% 0.5 MG/2.5 ML NEBU INH ONE (11:35)
[2022-04-30] MEDS ORDERED: ALBUTEROL 0.083% 2.5 MG/3 ML NEBU INH ONE ×2 (11:35→13:20)
[2022-04-30] MEDS ORDERED: predniSONE 20 MG TAB PO ONE (11:45)
--- NOTE | 2022-04-30 12:45 | NUR ---
PT SWABBED AND SENT TO LAB.
[2022-04-30 14:10] LABS: BASOPHILS # (AUTO) 0.1 K/uL (0.00-0.22); BASOPHILS % (AUTO) 0.9 % (0.0-2.0); EOSINOPHILS # (AUTO) 0.2 K/uL (0-0.4); EOSINOPHILS % (AUTO) 3.5 % (0.0-4.0); HEMATOCRIT 40.6 % (36-48); HEMOGLOBIN 13.9 g/dL (12.0-16.0); LYMPHOCYTES # (AUTO) 2.3 K/uL (2.5-16.5); LYMPHOCYTES % (AUTO) 33.9 % (20.5-51.1); MEAN CORPUSCULAR HEMOGLOBIN 35 pg (27-31); MEAN CORPUSCULAR HGB CONC 34 g/dL (33-37); MONOCYTES # (AUTO) 0.5 K/uL (0.8-1.0); MONOCYTES % (AUTO) 8.2 % (1.7-9.3); NEUTROPHILS # (AUTO) 3.6 K/uL (1.8-7.7); NEUTROPHILS % (AUTO) 53.5 % (42.2-75.2); PLATELET COUNT (AUTO) 250 K/uL (140-450); RED BLOOD CELL COUNT(AUTO) 4.02 MIL/uL (4.20-5.40); RED CELL DISTRIBUTION WIDTH 13.5 % (11.6-13.7); WHITE BLOOD COUNT (AUTO) 6.7 K/uL (4.8-10.8)
[2022-04-30 14:21] LABS: ALBUMIN 3.4 g/dL (3.4-5.0); ANION GAP 10.5 (8-16); ASPARTATE AMINOTRANSFERASE 14 U/L (15-37); CARBON DIOXIDE 31.2 mmol/L (21-32); CHLORIDE 103 mmol/L (98-107); CREATININE 0.7 mg/dL (0.6-1.3); GLUCOSE 235 mg/dL (74-106); POTASSIUM 3.7 mmol/L (3.5-5.1); SODIUM SERUM 141 mmol/L (136-145); TOTAL BILIRUBIN 0.2 mg/dL (0.0-1.0); UREA NITROGEN, BLOOD 12 mg/dL (7-18)
[2022-04-30] MEDS ORDERED: ALBUTEROL SULFATE/IPRATROPIU 3 ML SOL IH PRN ×2 (16:30→18:10)
[2022-04-30] MEDS ORDERED: ACETAMINOPHEN 325 MG TAB PO PRN (18:05)
[2022-04-30] MEDS ORDERED: ONDANSETRON 4 MG/2 ML VIAL IM/IVP PRN (18:05)
[2022-04-30] MEDS ORDERED: POTASSIUM CHLORIDE 10 MEQ TABER PO PRN (18:05)
[2022-04-30] MEDS ORDERED: guaiFENesin DM 200/20 MG-10 ML 10 ML UDC PO PRN (18:05)
[2022-04-30] MEDS ORDERED: ZOLPIDEM 5 MG TAB PO PRN (18:05)
[2022-04-30] MEDS ORDERED: DOCUSATE SODIUM 100 MG GELCAP PO PRN (18:05)
[2022-04-30] MEDS ORDERED: AZITHROMYCIN 500 MG in DEXTROSE 5% 250 ML IV SCH (18:10)
[2022-04-30] MEDS ORDERED: AZITHROMYCIN 500 MG INJ VIAL IV ONE (18:34)
[2022-04-30] MEDS: ALBUTEROL SULFATE/IPRATROPIU 3 ML SOL IH SCH (18:40)
[2022-04-30 18:47] LABS: MAGNESIUM 1.7 mg/dL (1.8-2.4); PHOSPHORUS 3.5 mg/dL (2.5-4.9); THYROID STIMULATING HORMONE 2.73 uIU/mL (0.34-3.74)
[2022-04-30] MEDS: BUDESONIDE 0.5 MG/2 ML NEBU INH SCH (19:30)
--- NOTE | 2022-04-30 19:49 | NUR ---
attempted to complete med reconcile pt doesnt know home meds except for insulin
--- NOTE | 2022-04-30 19:55 | NUR ---
Patient will be admitted to care of DR RAUSCH. Admited to TELE]. Will go to room 106B. Belongings list completed. Report to LOURDES PEÑALOZA.
--- NOTE | 2022-04-30 19:55 | NUR ---
PT TRANSPORTED TO [facility]IA [facility] AT THIS TIME.
[2022-04-30] MEDS ORDERED: methylPREDNISolone SS 125 MG/2 ML VIAL IVP SCH (21:00)
[2022-04-30] MEDS: HYDROcodone/APAP 7.5/325 MG 1 TAB PO PRN (22:30)
[2022-05-01] MEDS: HYDROcodone/APAP 7.5/325 MG 1 TAB PO PRN (06:24)
[2022-05-01 07:00] LABS: BASOPHILS % (AUTO) 0.1 % (0.0-2.0); HEMATOCRIT 43.3 % (36-48); HEMOGLOBIN 14.6 g/dL (12.0-16.0); LYMPHOCYTES # (AUTO) 0.8 K/uL (2.5-16.5); LYMPHOCYTES % (AUTO) 12.6 % (20.5-51.1); MEAN CORPUSCULAR HEMOGLOBIN 34 pg (27-31); MEAN CORPUSCULAR HGB CONC 34 g/dL (33-37); MEAN CORPUSCULAR VOLUME 101.6 fL (80-94); MONOCYTES % (AUTO) 0.5 % (1.7-9.3); NEUTROPHILS # (AUTO) 5.6 K/uL (1.8-7.7); NEUTROPHILS % (AUTO) 86.8 % (42.2-75.2); PLATELET COUNT (AUTO) 265 K/uL (140-450); RED BLOOD CELL COUNT(AUTO) 4.26 MIL/uL (4.20-5.40); RED CELL DISTRIBUTION WIDTH 13.2 % (11.6-13.7); WHITE BLOOD COUNT (AUTO) 6.5 K/uL (4.8-10.8)
[2022-05-01 07:12] LABS: ANION GAP 16.1 (8-16); CARBON DIOXIDE 26.7 mmol/L (21-32); CHLORIDE 102 mmol/L (98-107); CREATININE 0.7 mg/dL (0.6-1.3); GLUCOSE 373 mg/dL (74-106); POTASSIUM 4.8 mmol/L (3.5-5.1); SODIUM SERUM 140 mmol/L (136-145); UREA NITROGEN, BLOOD 12 mg/dL (7-18)
[2022-05-01] MEDS: BUDESONIDE 0.5 MG/2 ML NEBU INH SCH (07:30)
--- NOTE | 2022-05-01 07:44 | NUR ---
Report received from previous shift. Have reviewed care and continue to monitor pt. Pt in bed with call light in reach.
[2022-05-01 08:00] VITALS: BP 147/79
[2022-05-01] MEDS: ALBUTEROL SULFATE/IPRATROPIU 3 ML SOL IH SCH (08:35)
[2022-05-01] MEDS ORDERED: PANTOPRAZOLE 40 MG TABEC PO SCH (09:00)
[2022-05-01] MEDS ORDERED: LISI5TAB18 PO (10:29)
[2022-05-01] MEDS ORDERED: AZIT250T4 PO (10:31)
[2022-05-01] MEDS ORDERED: PRED20TA5 PO (10:31)
--- NOTE | 2022-05-01 10:33 | NUR ---
PATIENT HAS BEEN SCREENED AND CATEGORIZED MODERATE NUTRITION RISK. PATIENT WILL BE SEEN WITHIN 3-5 DAYS OF ADMISSION. 04/30/22-05/05/[address]
[2022-05-01 10:36] VITALS: BP 147/79
== END 2022-05-01 11:45 | disposition home or self-care (01) | DRG 189 ==
LOC: MED 10:30 → MTU 16:28
PROVIDERS: ADMIT Student in an Organized Health Care Education/Training Program; ATTEND Student in an Organized Health Care Education/Training Program
DX: J96.00 Acute respiratory failure, unspecified whether with hypoxia or hypercapnia (principal); J45.901 Unspecified asthma with (acute) exacerbation; K21.9 Gastro-esophageal reflux disease without esophagitis; Z20.822 Contact with and (suspected) exposure to COVID-19; J44.9 Chronic obstructive pulmonary disease, unspecified; M19.90 Unspecified osteoarthritis, unspecified site; Z88.8 Allergy status to other drugs, medicaments and biological substances; Z79.899 Other long term (current) drug therapy
CPT/HCPCS: 36415; 71045; 80048; 80053; 82150; 82803; 83036; 83690; 83735; 83880; 84100; 84443; 84484; 85025; 85610; 85730; 87081; 93005; 94640; 96365; 96375; 99285; J0456; J2930; J7060; J7512; J7613; J7626; J7644

== ENCOUNTER 2023-09-25 06:40 | Emergency (ER) | payer OTHER ==
[~2023-09-25] VITALS: Ht 154.9 cm; Wt 117.9 kg
[~2023-09-25 06:40] MED LIST changes: +AZIT250T4 PO; -CEPH-588 PO; +LISI5TAB18 PO; -ONDA-188 SL; -PRED10TA6 PO; +PRED20TA5 PO; -SULF-58 PO
[2023-09-25 07:04] VITALS: BP 122/65; PULSE 86; RESP 16; TEMP 97.6; O2SAT 98
[2023-09-25] MEDS: ALBUTEROL SULFATE/IPRATROPIU 3 ML SOL IH ONE (08:05)
[2023-09-25 08:06] VITALS: PULSE 85; RESP 18; O2SAT 98
[2023-09-25] MEDS: predniSONE 20 MG TAB PO ONE (08:24)
[2023-09-25] MEDS ORDERED: PRED20TA5 PO (08:35)
[2023-09-25 09:35] VITALS: BP 134/70; PULSE 81; RESP 18; O2SAT 95
== END 2023-09-25 09:35 | disposition home or self-care (01) ==
LOC: MED 06:40
DX: J06.9 Acute upper respiratory infection, unspecified (principal); J45.901 Unspecified asthma with (acute) exacerbation; J44.9 Chronic obstructive pulmonary disease, unspecified; K21.9 Gastro-esophageal reflux disease without esophagitis; E11.9 Type 2 diabetes mellitus without complications; I10 Essential (primary) hypertension; Z79.4 Long term (current) use of insulin; Z79.899 Other long term (current) drug therapy
CPT/HCPCS: 71045; 94640; 99283; J7030; J7512

== ENCOUNTER 2023-10-15 21:17 | Emergency (ER) | payer OTHER ==
[~2023-10-15] VITALS: Ht 157.5 cm; Wt 93.4 kg
[2023-10-15 21:35] VITALS: BP 139/73; PULSE 101; RESP 18; TEMP 98.1; O2SAT 100
[2023-10-15 22:19] VITALS: BP 139/73; PULSE 101; RESP 18; TEMP 98.1; O2SAT 98
[2023-10-15] MEDS: NACL 0.9% 1,000 ML IV ONE (22:40)
[2023-10-15 22:46] LABS: BASOPHILS % (AUTO) 0.5 % (0.0-2.0); EOSINOPHILS # (AUTO) 0.1 K/uL (0-0.4); EOSINOPHILS % (AUTO) 1.4 % (0.0-4.0); HEMATOCRIT 44.4 % (36-48); HEMOGLOBIN 15.2 g/dL (12.0-16.0); MEAN CORPUSCULAR HEMOGLOBIN 35 pg (27-31); MEAN CORPUSCULAR HGB CONC 34 g/dL (33-37); MEAN CORPUSCULAR VOLUME 102.7 fL (80-94); MONOCYTES # (AUTO) 0.6 K/uL (0.8-1.0); MONOCYTES % (AUTO) 8.8 % (1.7-9.3); NEUTROPHILS # (AUTO) 3.7 K/uL (1.8-7.7); NEUTROPHILS % (AUTO) 58.3 % (42.2-75.2); PLATELET COUNT (AUTO) 261 K/uL (140-450); RED BLOOD CELL COUNT(AUTO) 4.33 MIL/uL (4.20-5.40); RED CELL DISTRIBUTION WIDTH 12.8 % (11.6-13.7); WHITE BLOOD COUNT (AUTO) 6.4 K/uL (4.8-10.8)
[2023-10-15] MEDS: INSULIN REGULAR, HUMAN 100 UNIT/ML VIAL IVP ONE (22:49)
[2023-10-15 22:55] LABS: ANION GAP 13.7 (8-16); CALCIUM 8.9 mg/dL (8.5-10.1); CARBON DIOXIDE 30.2 mmol/L (21-32); CHLORIDE 98 mmol/L (98-107); CREATININE 0.7 mg/dL (0.6-1.3); GLUCOSE 346 mg/dL (74-106); POTASSIUM 4.9 mmol/L (3.5-5.1); SODIUM SERUM 137 mmol/L (136-145); UREA NITROGEN, BLOOD 11 mg/dL (7-18)
[2023-10-15 23:01] LABS: ALBUMIN 3.5 g/dL (3.4-5.0); TOTAL BILIRUBIN 0.5 mg/dL (0.0-1.0); TOTAL PROTEIN, SERUM 7.3 g/dL (6.4-8.2)
[2023-10-16] MEDS ORDERED: INSU100S54 SC (00:31)
[2023-10-16] MEDS ORDERED: LEVEMIR SUBQ (00:31)
== END 2023-10-16 00:35 | disposition home or self-care (01) ==
LOC: MED 21:17
DX: E11.65 Type 2 diabetes mellitus with hyperglycemia (principal); J45.909 Unspecified asthma, uncomplicated; J44.9 Chronic obstructive pulmonary disease, unspecified; I10 Essential (primary) hypertension; E11.9 Type 2 diabetes mellitus without complications; K21.9 Gastro-esophageal reflux disease without esophagitis; Z79.4 Long term (current) use of insulin; Z79.899 Other long term (current) drug therapy; Z91.013 Allergy to seafood
CPT/HCPCS: 36415; 80048; 80076; 82948; 85025; 96361; 96374; 99283; J1815; J7030

== ENCOUNTER 2023-12-20 05:30 | Emergency (ER) | payer OTHER ==
[~2023-12-20] VITALS: Ht 157.5 cm; Wt 93.4 kg
[2023-12-20 05:52] VITALS: BP 143/71; PULSE 86; RESP 18; TEMP 97.8; O2SAT 98
[2023-12-20] MEDS: ACETAMINOPHEN EXTRA STRENGTH 500 MG TAB PO ONE (06:50)
[2023-12-20] MEDS: KETOROLAC 30 MG/ML VIAL IM ONE (06:51)
[2023-12-20 06:56] VITALS: PULSE 88; RESP 12; O2SAT 95
[2023-12-20] MEDS: ALBUTEROL 0.083% 2.5 MG/3 ML NEBU INH ONE (07:01)
[2023-12-20] MEDS: IPRATROPIUM 0.02% 0.5 MG/2.5 ML NEBU INH ONE (07:01)
[2023-12-20 07:05] LABS: BASOPHILS % (AUTO) 0.8 % (0.0-2.0); EOSINOPHILS # (AUTO) 0.1 K/uL (0-0.4); EOSINOPHILS % (AUTO) 2.1 % (0.0-4.0); HEMATOCRIT 39.7 % (36-48); HEMOGLOBIN 13.8 g/dL (12.0-16.0); LYMPHOCYTES # (AUTO) 1.3 K/uL (2.5-16.5); LYMPHOCYTES % (AUTO) 36.9 % (20.5-51.1); MEAN CORPUSCULAR HEMOGLOBIN 35 pg (27-31); MEAN CORPUSCULAR HGB CONC 35 g/dL (33-37); MEAN CORPUSCULAR VOLUME 101.1 fL (80-94); MONOCYTES # (AUTO) 0.4 K/uL (0.8-1.0); MONOCYTES % (AUTO) 10.2 % (1.7-9.3); NEUTROPHILS # (AUTO) 1.8 K/uL (1.8-7.7); PLATELET COUNT (AUTO) 213 K/uL (140-450); RED BLOOD CELL COUNT(AUTO) 3.93 MIL/uL (4.20-5.40); RED CELL DISTRIBUTION WIDTH 13.2 % (11.6-13.7); WHITE BLOOD COUNT (AUTO) 3.5 K/uL (4.8-10.8)
[2023-12-20 07:21] LABS: ANION GAP 11.4 (8-16); CARBON DIOXIDE 28.3 mmol/L (21-32); CHLORIDE 101 mmol/L (98-107); CREATININE 0.6 mg/dL (0.6-1.3); GLUCOSE 306 mg/dL (74-106); POTASSIUM 3.7 mmol/L (3.5-5.1); SODIUM SERUM 137 mmol/L (136-145); UREA NITROGEN, BLOOD 9 mg/dL (7-18)
[2023-12-20 07:27] LABS: INR 0.99 (0.8-1.2); PARTIAL THROMBOPLASTIN TIME 24.9 secs (22-35.6); PROTHROMBIN TIME 10.4 secs (10.8-13.4)
[2023-12-20 07:40] VITALS: BP 110/67; PULSE 96; RESP 15; TEMP 97.8; O2SAT 95
[2023-12-20] MEDS ORDERED: ALBU0.0912 INH (09:38)
== END 2023-12-20 10:12 | disposition home or self-care (01) ==
LOC: MED 05:30
DX: J45.901 Unspecified asthma with (acute) exacerbation (principal); E11.9 Type 2 diabetes mellitus without complications; I10 Essential (primary) hypertension; M06.9 Rheumatoid arthritis, unspecified; M81.0 Age-related osteoporosis without current pathological fracture; K21.9 Gastro-esophageal reflux disease without esophagitis; Z79.52 Long term (current) use of systemic steroids; Z79.84 Long term (current) use of oral hypoglycemic drugs; Z79.4 Long term (current) use of insulin; Z79.899 Other long term (current) drug therapy; Z91.013 Allergy to seafood
CPT/HCPCS: 36415; 71045; 80048; 83880; 84484; 85025; 85610; 85730; 93005; 94640; 96372; 99285; J1885; J7613; J7644